=== PATIENT | male | born 1950 | race Caucasian/White ===

== ENCOUNTER 2016-11-27 20:06 | Emergency (ER) | payer OTHER ==
[~2016-11-27] VITALS: Ht 188 cm; Wt 98.3 kg
[2016-11-27 20:17] VITALS: TEMP 36.7; Ht 188 cm; Wt 98.3 kg
[2016-11-27] MEDS ORDERED: SODIUM CHLORIDE 0.9% 1000ML 1,000 ML IV STA (20:42)
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
[2016-11-27 21:18] LABS: BASO % 0.2 %; BASO ABS # 0.03 K/uL (0-0.2); COMPLETE YES; HEMATOCRIT 39.3 % (42-52); IG% 0.6 %; LYMPH % 9.5 %; MEAN CELL VOLUME 92.9 fL (80-100); MEAN CORPUSCULAR HEMOGLOBIN 32.2 pg (25-34); MEAN CORPUSCULAR HGB CONC 34.6 g/dl (32-36); MONO % 9.4 %; NEUT % 79.3 %; PLATELET COUNT 276 K/uL (130-400); RED BLOOD COUNT 4.23 M/uL (4.7-6.1); WHITE BLOOD COUNT 12.58 K/uL (4.8-10.8)
[2016-11-27 21:37] LABS: BUN/CREATININE RATIO 10.8 (10-20); CREATININE 1.3 mg/dl (0.60-1.40); POTASSIUM 4.1 mmol/L (3.5-5.1)
[2016-11-27] MEDS ORDERED: ACETAMINOPHEN 325 MG TAB PO STA (22:14)
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
[2016-11-28] MEDS ORDERED: KETOROLAC TROMETHAMINE 30 MG/ML VIAL IV STA (01:19)
--- NOTE | 2016-11-28 02:06 | EMERGENCY ROOM VISIT NOTE ---
ED Visit Note First contact with patient: 01:19 The patient was having significant stiffness and difficulty with ambulation. He was given 30mg of Toradol IV and a walker to use at home
[2016-11-28 02:30] VITALS: BP 131/66; PULSE 69; O2SAT 98
[2016-11-28 02:32] LABS: URINE APPEARANCE CLEAR (CLEAR); URINE BILIRUBIN NEG (NEG); URINE COLOR YELLOW; URINE NITRITE NEG (NEG); URINE PH 6.5 (4.5-7.5); URINE SPECIFIC GRAVITY 1.018 (1.000-1.030); UROBILINOGEN NEG (NEG); ZZUR CULT IF INDIC CLEAN CATCH NO
[2016-11-28 02:37] LABS: MANUAL MICROSCOPIC REQUIRED? NO; REVIEW REQ? NO
== END 2016-11-28 02:32 | disposition home or self-care (01) ==
LOC: EDBD 20:06 → C.EDB 20:07
DX: S20.412A Abrasion of left back wall of thorax, initial encounter (principal); T14.8 Other injury of unspecified body region; V19.3XXA Pedal cyclist (driver) (passenger) injured in unspecified nontraffic accident, initial encounter; E11.9 Type 2 diabetes mellitus without complications